=== PATIENT | male | born 1940 | race Caucasian/White ===

== ENCOUNTER → 2016-07-16 | Outpatient (CLI) | payer MEDICARE, MEDICAID | END | disposition home or self-care (01) | LOC: RAD 08:06 | PROVIDERS: ATTEND Orthopaedic Surgery | DX: M19.012 Primary osteoarthritis, left shoulder (principal); M75.52 Bursitis of left shoulder; Z96.619 Presence of unspecified artificial shoulder joint; Z95.0 Presence of cardiac pacemaker ==

== ENCOUNTER → 2016-09-17 | Outpatient (CLI) | payer MEDICARE, MEDICAID | LOC: RAD 13:20 | PROVIDERS: ATTEND Physical Medicine & Rehabilitation | DX: Z02.9 Encounter for administrative examinations, unspecified (principal) ==

== ENCOUNTER 2016-10-12 11:42 | Day surgery (SDC) | payer MEDICARE, MEDICAID ==
[~2016-10-12] VITALS: Ht 188 cm; Wt 138.0 kg
[2016-10-12] MEDS ORDERED: HYDR25SU21 RC (12:39)
[2016-10-12] MEDS ORDERED: APIX5TAB PO (12:39)
[2016-10-12] MEDS ORDERED: GABA300C10 PO (12:39)
[2016-10-12] MEDS ORDERED: TEST75GE TD (12:39)
[2016-10-12] MEDS ORDERED: OXYC1TAB9 PO (12:39)
[2016-10-12] MEDS ORDERED: CARV3.1212 PO (12:39)
[2016-10-12] MEDS ORDERED: METF500T4 PO (12:39)
[2016-10-12] MEDS ORDERED: LEVO100T5 PO (12:39)
[2016-10-12] MEDS ORDERED: SITA25TA PO (12:39)
[2016-10-12] MEDS ORDERED: TRAZ100T15 PO (12:39)
[2016-10-12] MEDS ORDERED: TAMS-11 PO (12:39)
[2016-10-12] MEDS ORDERED: FURO40TA6 PO (12:39)
[2016-10-12] MEDS ORDERED: SOMA15PE2 SQ (12:39)
[2016-10-12] MEDS ORDERED: ALLO300T PO (12:39)
[2016-10-12] MEDS ORDERED: POTA8TAB PO (12:39)
[2016-10-12] MEDS ORDERED: MELO7.5T31 PO (12:39)
[2016-10-12 12:40] VITALS: BP 115/83
[2016-10-12] MEDS ORDERED: LACTATED RINGERS 1,000 ML IV SCH (12:42)
[2016-10-12 13:37] LABS: ASPARTATE AMINO TRANSFERASE 21 U/L (15-37); BLOOD UREA NITROGEN 17 mg/dL (7-18)
[2016-10-12] MEDS ORDERED: PROPOFOL 10 MG/ML, 20ML ONE (13:54)
[2016-10-12] MEDS ORDERED: ONDANSETRON 2MG/ML, 2ML ONE (13:54)
[2016-10-12] MEDS ORDERED: DEXAMETHASONE 4 MG/ML, 1ML ONE (13:54)
[2016-10-12] MEDS ORDERED: ROCURONIUM 10 MG/ML ONE (13:54)
[2016-10-12] MEDS ORDERED: SUCCINYLCHOLINE 20 MG/ML, 10ML ONE (13:54)
[2016-10-12] MEDS ORDERED: OXYcodone 5 MG/5 ML ORAL.SOL UDC ONE (15:28)
[2016-10-12] MEDS ORDERED: PROMETHAZINE 25 MG/ML, 1ML IV PRN (15:30)
[2016-10-12] MEDS ORDERED: MEPERIDINE/PF 25MG/0.5ML IVPush PRN (15:30)
[2016-10-12] MEDS ORDERED: HYDROmorphone 1 MG/ML, 1ML IV PRN (15:30)
[2016-10-12] MEDS ORDERED: OXYcodone 5 MG/5 ML ORAL.SOL UDC PO PRN (15:30)
[2016-10-12] MEDS ORDERED: ALBUTEROL SULFATE 2.5 MG/3 ML NPPB PRN (15:30)
[2016-10-12] MEDS ORDERED: ACETAMINOPHEN 325 MG TABLET PO PRN (15:30)
[2016-10-12] MEDS ORDERED: MIDAZOLAM 1 MG/ML, 2ML IV PRN (15:30)
[2016-10-12] MEDS ORDERED: FENTANYL PF 100 MCG/2ML IV PRN (15:30)
[2016-10-12] MEDS ORDERED: LABETALOL 5MG/ML, 20ML IV PRN (15:30)
[2016-10-12] MEDS ORDERED: hydrALAzine 20 MG/ML, 1ML IV PRN (15:30)
[2016-10-12] MEDS ORDERED: ONDANSETRON 2MG/ML, 2ML IVPush PRN (15:30)
== END 2016-10-12 16:05 | disposition home or self-care (01) ==
LOC: OUT 11:42
PROVIDERS: ATTEND Physical Medicine & Rehabilitation
DX: M50.121 Cervical disc disorder at C4-C5 level with radiculopathy (principal); M50.122 Cervical disc disorder at C5-C6 level with radiculopathy; E11.9 Type 2 diabetes mellitus without complications; K21.9 Gastro-esophageal reflux disease without esophagitis; Z87.39 Personal history of other diseases of the musculoskeletal system and connective tissue; Z87.442 Personal history of urinary calculi; Z98.42 Cataract extraction status, left eye; Z98.41 Cataract extraction status, right eye; Z98.890 Other specified postprocedural states
CPT/HCPCS: 36415; 72141; 80053; 82962; 93005; 94002; J0330; J1100; J2405; J2704; J7120